=== PATIENT | female | born 1950 | race Caucasian/White ===

== ENCOUNTER 2016-04-21 18:34 | Inpatient (IN) | payer MEDICARE ==
[~2016-04-21] VITALS: Ht 152.4 cm; Wt 100.3 kg
[~2016-04-21 18:34] MED LIST: ALDACTONE25 MG PO; CAPOTEN 25MG TA25 MG PO; CITALOPRAM20 MG PO; KLOR-CON M2020 ME1 PO; LASIX80 MG PO; LOPID 600MG TA600 MG PO; METFORMIN ER500 M1 PO; MIRALAX17 GM/PACK PO; OMNICEF 300 MG300 MG PO; PREDNISONE5 MG PO; PREVACID 30MG C30 M1 PO; PROAIR HFA0.09 MG/AC IH; SALMETEROL-F28 PUFFS IN; TUSSIGON 1.5 MG1 TAB PO
[2016-04-21 18:36] VITALS: BP 134/79
[2016-04-21 19:04] LABS: LYMPH # 0.9 K/mm3 (0.7-4.5); LYMPH % 9.6 % (10-50.0)
[2016-04-21 19:13] LABS: HEMOGLOBIN 15.5 g/dL (12.2-16.2)
[2016-04-21 19:25] LABS: ALLEN'S TEST ACCEPTABLE; ARTERIAL ABE 1.1 MMOL/L (-2.4-+2.3); OXYGEN 6LPM
--- NOTE | 2016-04-21 19:45 | Emergency Room Report ---
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 N Clinical Suspician of Infection? N Mental Status: 1 - Regular (Normal Baseline) Sepsis Risk:Low Sepsis Risk Have you (or family members/close friends) recently traveled outside the [place]? N If Yes, where/when: Have you had exposure to infectious disease within the past month? N TB? Other? Specify: Source patient, RN notes reviewed, family, RN/MD Exam Limitations no limitations Comment This is a 66-year-old diabetic female patient presenting to the emergency room with shortness of breath, subjective fever, productive cough, onset on Thursday, gradually getting worse. Patient advised that her sister has been recently diagnosed with flu, but denies any recent travel. She is denying any chest pain, also did not have any previous cardiac work up. She "just does not feel well". Patient is denying any recent travel. ALLERGIES Coded Allergies: No Known Allergies (04/21/16) Home Medications Reported Medications Lansoprazole (Prevacid) 30 MG PO BID Polyethylene Glycol 3350 (Miralax) 17 GM PO DAILY Gemfibrozil (Lopid 600MG Tablet (Generic)) 600 MG PO BID Furosemide (Lasix) 80 MG PO DAILY Metformin HCl (Metformin ER) 500 MG PO BID CAPTOPRIL (Captopril) 25 MG PO BID Spironolactone (Aldactone) 25 MG PO BID CITALOPRAM HYDROBROMIDE (Citalopram HBr) 20 MG PO DAILY Potassium Chloride (Klor-Con M20) 20 MEQ PO DAILY Salmeterol 50/Fluticasone 250 (Advair 250-50 Diskus) 1 PUFF IN BID Albuterol Sulfate (Proair Hfa) 2 PUFFS IH QID Tiotropium [place] (Spiriva) 1 PUFF IH DAILY Sertraline Hcl (Sertraline 50MG) 50 MG PO DAILY #90 TAB Sulindac ([place] Generic 200MG Tab) 200 MG PO BID #180 TAB Risedronate Sodium 35 MG PO WEEKLY #12 TAB History Medical History General CAD? No Angina: No RI: No Hypertension? Yes Hyperlipidemia? No CHF? Yes DVT? No PE? No COPD? Yes Asthma? Yes Anemia? No GERD? No Gastric ulcers? No GI Bleed? No Hernia? No Thyroid Problems? No Hypothyroidism? No CVA? No Seizures? No Diabetes? Yes Insulin Dependent: No Insulin Pump: No Home FSBS? Yes Renal Insuffiency? No End Stage Renal Disease? No UTI? No Stones? No BPH? No GB Disease: No Nephritic Syndrome? No Asplenia? No Hepatitis? No Sickle Cell Disease? No Arthritis? No Migraines? No Cataracts? No Glaucoma? No MRSA? No HIV? No TB? No Anxiety? No Depression? No Cancer? No Immunization Hx DT/Tetanus > 10 YRS Flu THISFLUSEA Pneumonia Received In Past Surgical Hx Previous Surgery?Y Tubal Ligation APPY MULTILPLE BREAST BIOPSIES Family History Family Hx Diabetes No CAD Yes Hypertension Yes Hyperlipidemia Yes Cancer Yes TB No Social History Smoking Hx Smoker: Current Every Day Smoker Tobacco: Yes Type Cigarettes Packs/day < 1 Pack Alcohol Alcohol: No Review of Systems All Other Systems Reviewed and Negative Respiratory see HPI, cough, shortness of breath Physical Exam Vital Signs Vital Signs Date Time Temp Pulse Resp B/P Pulse O2 O2 Flow FiO2 Ox Delivery Rate 04/21 2052 6 04/21 2022 100 22 137/97 91 4 04/21 1952 95 22 107/57 91 4 04/21 1918 91 22 143/91 93 04/21 1900 12 04/21 190 12 04/21 1836 88 24 134/79 86 4 General Appearance normal appearance, WD/WN, moderate distress Neck normal inspection, non-tender, supple, full range of motion Respiratory Status Yes: trachea midline, chest symmetrical, non tender chest. No: respiratory distress. Lung Sounds anterior: wheezing. posterior: wheezing. bilateral: wheezing. left: wheezing. right: wheezing. 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 No Comment 18:45-case discussed with Dr. Lyon, advised of patient's presentation, blood gases, vital signs, radiology results. Dr. Lyon agreeable to accept patient as admission, with IV steroids, IV antibiotics, neb treatments, repeat ABGs. 19:30-case d/w Dr Arroyo, will see the patient in consultation, and okay with all the meds so far give, okay with management. 19:45-informed Dr Lyon of the elevated Troponin, and cardiology consultation Results/Orders Laboratory Tests 04/21/161923: ABG pH 7.25 L, ABG pCO2 (Temp Corrct 65.7 H, ABG pO2 (Temp Correct 76.0 L, ABG HCO3 28.0 H, ABG Total CO2 30.0 H, ABG O2 Sat (Calculated) 92, ABG Base Excess 1.1, Alexis Test ACCEPTABLE, Blood Gas Comments LEFT RADIAL 04/21/161849: B-Natriuretic Peptide 250 H 04/21/161849: Sodium 137, Potassium 3.9, Chloride 98, Carbon Dioxide 31, BUN 26 H, Creatinine 0.7, Estimated Creat Clear 140, Estimated GFR (MDRD) 84, Glucose 144 H, Calcium 8.8, Total Bilirubin 0.3, AST 19, ALT 23, Alkaline Phosphatase 110, Creatine Kinase 99, CK-MB (CK-2) Rel Index 3.3, CK and CKMB Interp 3.3, Troponin I 0.40 H, Total Protein 8.2, Albumin 3.1 L, Globulin 5.1 H, Albumin/Globulin Ratio 0.6 L, WBC 8.8, RBC 6.15 H, Hgb 15.5, Hct 47.9 H, MCV 77.9 L, RDW 15.7, Plt Count 135 L, MPV 7.3 L, Gran % 85.0 H, Gran # 7.5, Total Counted 100, Lymphocytes % 9.6 L, Monocytes % 4.7, Eosinophils % 0.4, Basophils % 0.4, Neutrophils 90 H, Lymphocytes (Manual) 6 L, Lymphocytes # 0.9, Monocytes ( Manual) 4, Monocytes # 0.4, Eosinophils # 0.0, Basophils # 0.0, Platelet Estimate NORMAL, Hypochromasia 1+, Anisocytosis 1+, PUBS MCHC 32.5, MCH 25.3 L Orders Procedure Date/time Status CARDIAC ENZYMES 04/22 0300 Complete ARTERIAL BLOOD GAS REQUEST 04/21 2200 Active CARDIAC ENZYMES 04/21 2099 Complete RT BIPAP, Initial Setup/Change 04/21 2052 Complete RT BIPAP, Monitor/Maintain 04/21 2052 Complete BRAIN NATRIURETIC PEPTIDE 04/21 2013 Complete RESP THERAPY REQUEST (GENERAL) 04/21 1957 Active Decision to admit 04/21 1947 Active RT Aerosol Treatment, Provide 04/21 1939 Complete RT REQUEST DUONEB 04/21 193 Active RT Aerosol Treatment, Provide 04/21 190 Complete RT REQUEST DUONEB 04/21 185 Active ARTERIAL BLOOD GAS REQUEST 04/21 185 Active IV SALINE LOCK 04/21 1850 Active CULTURE, BLOOD 04/21 1850 Active CBC WITH AUTO DIFF 04/21 185 Complete CARDIAC ENZYMES 04/21 185 Complete CHEM 12 PROFILE 04/21 1851 Complete DIFFERENTIAL-WBC 04/21 1850 Complete ADMIT PATIENT 04/21 UNK Active RESP THERAPY REQUEST (GENERAL) 04/21 UNK Active PULSE OXIMETRY REQUEST 04/21 UNK Active OXYGEN REQUEST 04/21 UNK Active RT REQUEST DUONEB 04/21 UNK Active VITAL SIGNS 04/21 UNK Active SECRETARY OF POLICE 04/21 UNK Active POM NURSE HELLEN HOSE ORDER 04/21 UNK Active CODE STATUS 04/21 UNK Active PATIENT ACTIVITY ORDER 04/21 UNK Active [facility] PHYS CONSULT 04/21 UNK Active 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 of ischemic chgs, no ectopy, normal QRS, normal [place], normal EKG, no EKG for comparison, non-spec. ST/Twave chgs, ST elevation, ST depression, LBBB, RBBB, ectopy, abnormal Q waves XRAY/CT/US XRAY/CT/US XRAY chest XR interpretation by discussed w/radiologist Xray Results no infiltrates, normal heart size, normal lung inflation mary Departure Departure Time of Disposition 1942 Disposition Still a Patient Clinical Impression Primary Impression: NSTEMI (non-ST elevated myocardial infarction) Secondary Impressions: Acute exacerbation of chronic bronchitis COPD exacerbation Respiratory failure with hypoxia and hypercapnia Qualifiers: Chronicity: acute Qualified Code: J96.01 - Acute respiratory failure with hypoxia Condition STABLE Referrals Camron MEADE,Shayne Canales (Family) Prescriptions Current Visit Scripts Cefdinir 300 MG PO BID #10 CAP Ref 1 Aspirin (Aspirin EC) 81 MG PO QHS #100 TAB Ref 6 ED Critical Care Critical Care Yes Time spent 30-74 min Vital system(s) involved: Circulatory Failure, Respiratory Failure I was present at bedside for Coordinating pt's care, Interpreting EKGs/Strips , During my initial exam, Reviewing lab results, Reviewing old records, Discussing pt condition, For re-examinations, Examining radiographs If Critical Care minutes are documented, the time involved in the performance of seperately reportable procedures was not counted toward critical care time documented. I directly delivered medical care to this critically ill and/or injured patient. Timely evaluation and treatment was necessary to address the significant organ system(s) dysfunction present in this patient. at [id number]
[2016-04-21 20:58] LABS: NEUTROPHILS 90 % (42-76)
[2016-04-21 21:25] VITALS: BP 158/76
--- NOTE | 2016-04-21 21:25 | HISTORY AND PHYSICAL REPORT ---
See Addendum History and Physical (FCA) Date of admission: 04/21/16 Chief complaint: SHORTNESS OF BREATH. HISTORY: This 66-year-old white female with chronic lung disease was admitted through the emergency room this evening. She states that she has had shortness of breath since Thursday and throughout the weekend. So now she is admitted Thursday evening. Possibly has had some low-grade fever. She has had chest tightness but no chest pain. As she was being worked up in the emergency room for her lung disease which is severe, it was found that she had an elevated troponin of 0.4. Dr. Arroyo exhaust emissions inspector has been notified of this. She has been medicated accordingly with Enoxaprin and Plavix. Despite her lung disease this patient continues to be a smoker. History: History of Present Illness: See above. Past Medical History: Medical History: CAD? No Angina: No CA: No Hypertension? Yes Hyperlipidemia? No CHF? No DVT? No PE? No COPD? Yes Asthma? Yes Anemia? No GERD? Yes Gastric ulcers? No GI Bleed? No Hernia? No Thyroid Problems? No Hypothyroidism? No CVA? No Seizures? No Diabetes? Yes Insulin Dependent: No Insulin Pump: No Home FSBS? Yes Renal Insuffiency? No UTI? No Stones? No BPH? No GB Disease: No Nephritic Syndrome? No Asplenia? No Hepatitis? No Sickle Cell Disease? No Arthritis? No Migraines? No Cataracts? No Glaucoma? No MRSA? No HIV? No TB? No Anxiety? No Depression? No Cancer? No Surgical history: Previous Surgery?Y 1. Bilateral Tubal Ligation 2. Appendectomy 3. MULTILPLE BREAST BIOPSIES Medications: Active Scripts Prednisone 5 MG PO DAILY 30 Days Ref 2 Prov: 06/04/11 Reported Medications Lansoprazole (Prevacid) 30 MG PO BID Polyethylene Glycol 3350 (Miralax) 17 GM PO DAILY Gemfibrozil (Lopid 600MG Tablet (Generic)) 600 MG PO BID Furosemide (Lasix) 80 MG PO DAILY Metformin HCl (Metformin ER) 500 MG PO BID CAPTOPRIL (Captopril) 25 MG PO BID Spironolactone (Aldactone) 25 MG PO BID CITALOPRAM HYDROBROMIDE (Citalopram HBr) 20 MG PO DAILY Potassium Chloride (Klor-Con M20) 20 MEQ PO DAILY Salmeterol 50/Fluticasone 250 (Advair 250-50 Diskus) 1 PUFF IN BID Albuterol Sulfate (Proair Hfa) 2 PUFFS IH QID Allergies: Coded Allergies: No Known Allergies (04/21/16) Family History: Family history: Postive for: CAD (Father), HTN, cancer (breast-mother). Social History: Smoking Hx Tobacco: Yes Smoker: Current Every Day Smoker Type: Cigarettes Packs/day: < 1 Pack (1 ppd) Are you exposed to second hand Yes Alcohol: Alcohol: No Hx of Drug Use: Drug Use? No Patien't marital status is: single Patient's support system is: fair Patient's occupation: Used to work at [employer] Review of Systems: Patient unresponsive? No (but on BiPap) Constitutional Positive for: weak. ENT No: ear ache, sore throat, throat swelling. Cardiovascular Positive for: FRIEDMAN. No: chest pain ("tightness"), edema, palpitations. Respiratory Positive for: dyspnea on exertion, shortness of air, wheezing. No: hemoptysis. GI No: GERD, abdominal pain, hematochezia, vomitting. (female) No: flank pain. Skin No: rash, swelling. Neurological Positive for: light headed, weakness. No: change in LOC, seizure, syncope. Eyes No: vision loss, eye pain, swelling. Musculoskeletal No: extremity pain. Heme No: bleeding. Psychiatric Positive for: anxious. No: depression, change in mental status. Physical Exam: Vital signs: 1ST Vital Signs Result Date Time Pulse Ox 86 04/21 1835 B/P 134/79 04/21 1835 O2 Flow Rate 4 04/21 1835 Pulse 88 04/21 1835 Resp 24 04/21 1835 Exam: General appearance: moderate distress, obese, agitated Eyes: anicteric, PERRLA ENT: mucous membranes moist Cardiovascular: regular rate & rhythm, distant heart sounds Respiratory: diminished breath sounds (BiPap) ABD: no organomegaly, obese Genitourinary: normal voiding & quantity Extremities: no peripheral edema Musculoskeletal: kyphosis present Skin: dry, intact, cyanosis Neuro: alert, no deficit, oriented, anxious due to dyspnea Lab data: Labs: Laboratory Tests 04/21/164: ABG pH 7.25 L, ABG pCO2 (Temp Corrct 65.7 H, ABG pO2 (Temp Correct 76.0 L, ABG HCO3 28.0 H, ABG Total CO2 30.0 H, ABG O2 Sat (Calculated) 92, ABG Base Excess 1.1, Alexis Test ACCEPTABLE, Blood Gas Comments LEFT RADIAL 04/21/161849: B-Natriuretic Peptide 250 H 04/21/161849: Sodium 137, Potassium 3.9, Chloride 98, Carbon Dioxide 31, BUN 26 H, Creatinine 0.7, Estimated Creat Clear 140, Estimated GFR (MDRD) 84, Glucose 144 H, Calcium 8.8, Total Bilirubin 0.3, AST 19, ALT 23, Alkaline Phosphatase 110, Creatine Kinase 99, CK-MB (CK-2) Rel Index 3.3, CK and CKMB Interp 3.3, Troponin I 0.40 H, Total Protein 8.2, Albumin 3.1 L, Globulin 5.1 H, Albumin/Globulin Ratio 0.6 L, WBC 8.8, RBC 6.15 H, Hgb 15.5, Hct 47.9 H, MCV 77.9 L, RDW 15.7, Plt Count 135 L, MPV 7.3 L, Gran % 85.0 H, Gran # 7.5, Total Counted 100, Lymphocytes % 9.6 L, Monocytes % 4.7, Eosinophils % 0.4, Basophils % 0.4, Neutrophils 90 H, Lymphocytes (Manual) 6 L, Lymphocytes # 0.9, Monocytes ( Manual) 4, Monocytes # 0.4, Eosinophils # 0.0, Basophils # 0.0, Platelet Estimate NORMAL, Hypochromasia 1+, Anisocytosis 1+, PUBS MCHC 32.5, MCH 25.3 L Microbiology 04/21 1849 BLOOD: Anaerobic Blood Culture - RECD 04/21 1849 BLOOD: Aerobic Blood Culture - RECD 04/21 1849 BLOOD: Anaerobic Blood Culture - RECD 04/21 1849 BLOOD: Aerobic Blood Culture - RECD Diagnosis(es): 1. Acute exacerbation of chronic obstructive airways disease Status: Acute 2. Asthma Status: Chronic 3. Hypoxia Status: Acute 4. Respiratory failure with hypoxia and hypercapnia 5. NSTEMI (non-ST elevated myocardial infarction) Plan: See orders. Has received IV SoluMedrol. Enoxaprin. Plavix. IV antibiotics. Dr. Arroyo aware of patient and her status. at [id number]
[2016-04-21 22:52] VITALS: BP 158/76
[2016-04-21 23:06] LABS: ALLEN'S TEST ACCEPTABLE; ARTERIAL ABE -0.5 MMOL/L (-2.4-+2.3); OXYGEN BIPAP 5LPM
[2016-04-22] VITALS (20 sets, daily range): BP systolic 131–192; BP diastolic 55–90
[2016-04-22 06:14] LABS: ALLEN'S TEST ACCEPTABLE; ARTERIAL ABE 4.3 MMOL/L (-2.4-+2.3); ARTERIAL PO2 53.9 MMHG (80-100); ARTERIAL TCO2 31.8 MMOL/L (23-27); OXYGEN 32% BIPAP
--- NOTE | 2016-04-22 07:21 | PHARMACY CLINIC NOTE ---
Patient Demographics Patient Demographics Admission date: 04/21/16 Date: 04/22/16 Time: 0721 Allergies Coded Allergies: No Known Allergies (04/21/16) HEIGHT- FT: 5 IN: 0.00 K.143 VTE General Information Labs: Laboratory Tests 04/21 1850 Hematology Hgb (12.2 - 16.2 g/dL) 15.5 Hct (37.0 - 47.0 %) 47.9 H Plt Count (142 - 424 K/mm3) 135 L Disclaimer The following section includes nursing documentation that has been pulled in for pharmacy review. Patient's VTE score: 6 Patient's VTE Risk: MOD RISK Clinical trial participant? No VTE prophylaxis [facility] 0371 VTE prophylaxis ordered? Yes Type of prophylaxis/treatment: HELLEN Sheldon at 0721
--- NOTE | 2016-04-22 07:21 | PHARMACY CLINIC NOTE ---
Patient Demographics Patient Demographics Admission date: 04/21/16 Date: 04/22/16 Time: 0721 Allergies Coded Allergies: No Known Allergies (04/21/16) HEIGHT- FT: 5 IN: 0.00 K.143 VTE General Information Labs: Laboratory Tests 04/21 1850 Hematology Hgb (12.2 - 16.2 g/dL) 15.5 Hct (37.0 - 47.0 %) 47.9 H Plt Count (142 - 424 K/mm3) 135 L Disclaimer The following section includes nursing documentation that has been pulled in for pharmacy review. Patient's VTE score: 6 Patient's VTE Risk: MOD RISK Clinical trial participant? No VTE prophylaxis [facility] 0371 VTE prophylaxis ordered? Yes Type of prophylaxis/treatment: HELLEN Sheldon at 0721
--- NOTE | 2016-04-22 07:56 | RADIOLOGY REPORT PS360 ---
CHEST-PORTABLE HISTORY: SOA ORDERING PHYSICIAN: Dakota Jacome MD PATIENT AGE: 66 years COMPARISON: None available FINDINGS: Cardiomegaly without failure. Chronic coarsening of bronchovascular markings as before.. Study is underpenetrated. Increased markings are present in the right lower lobe and may be due to superimposed atelectasis or infiltrate.. No acute bony anomalies. IMPRESSION: Chronic changes with atelectasis or infiltrate in the right mid to lower lung zone. Recommend upright PA and lateral chest for further evaluation
--- NOTE | 2016-04-22 08:00 | ACUTE CARE PROGRESS NOTE (QUA) ---
See Addendum Progress Notes Subjective Date 04/22/16 Time 0755 Note Pt feeling better this am. She states her CP and stomach pain have resolved. She has been on BIPAP and does c/o a dry mouth. She slept off and on last night. Her SOA has improved. Objective Findings Last VS-Temp:98.2 B/P:166/83 Pulse:72 Resp:85 SaO2:91 OXYGEN Last weight lbs:225 oz:3 K.143 Method:Bed Scales Laboratory Tests 04/22/16 0555: ABG pH 7.34 L, ABG pCO2 (Temp Corrct 56.9 H, ABG pO2 (Temp Correct 53.9 L, ABG HCO3 30.1 H, ABG Total CO2 31.8 H, ABG O2 Sat (Calculated) 85.8 *L, ABG Base Excess 4.3 H, Alexis Test ACCEPTABLE, Blood Gas Comments RIGHT RADIAL 04/22/16 0310: Creatine Kinase 79, CK-MB (CK-2) Rel Index 4.7 H, CK and CKMB Interp 3.7 H, Troponin I 0.34 H 04/21/16 2305: ABG pH 7.28 L, ABG pCO2 (Temp Corrct 57.0 H, ABG pO2 (Temp Correct 80.0, ABG HCO3 26.0, ABG Total CO2 28.0 H, ABG O2 Sat (Calculated) 94, ABG Base Excess - 0.5, Alexis Test ACCEPTABLE, Blood Gas Comments RIGHT RADIAL 04/21/162103: POC Glucose 137 H 04/21/162100: Creatine Kinase 84, CK-MB (CK-2) Rel Index 3.9, CK and CKMB Interp 3.3, Troponin I 0.50 H 04/21/16 1924: ABG pH 7.25 L, ABG pCO2 (Temp Corrct 65.7 H, ABG pO2 (Temp Correct 76.0 L, ABG HCO3 28.0 H, ABG Total CO2 30.0 H, ABG O2 Sat (Calculated) 92, ABG Base Excess 1.1, Alexis Test ACCEPTABLE, Blood Gas Comments LEFT RADIAL 04/21/16 1850: B-Natriuretic Peptide 250 H 04/21/16 1850: Sodium 137, Potassium 3.9, Chloride 98, Carbon Dioxide 31, BUN 26 H, Creatinine 0.7, Estimated Creat Clear 140, Estimated GFR (MDRD) 84, Glucose 144 H, Calcium 8.8, Total Bilirubin 0.3, AST 19, ALT 23, Alkaline Phosphatase 110, Creatine Kinase 99, CK-MB (CK-2) Rel Index 3.3, CK and CKMB Interp 3.3, Troponin I 0.40 H, Total Protein 8.2, Albumin 3.1 L, Globulin 5.1 H, Albumin/Globulin Ratio 0.6 L, WBC 8.8, RBC 6.15 H, Hgb 15.5, Hct 47.9 H, MCV 77.9 L, RDW 15.7, Plt Count 135 L, MPV 7.3 L, Gran % 85.0 H, Gran # 7.5, Total Counted 100, Lymphocytes % 9.6 L, Monocytes % 4.7, Eosinophils % 0.4, Basophils % 0.4, Neutrophils 90 H, Lymphocytes (Manual) 6 L, Lymphocytes # 0.9, Monocytes ( Manual) 4, Monocytes # 0.4, Eosinophils # 0.0, Basophils # 0.0, Platelet Estimate NORMAL, Hypochromasia 1+, Anisocytosis 1+, PUBS MCHC 32.5, MCH 25.3 L Microbiology 04/21 1849 BLOOD: Anaerobic Blood Culture - RECD 04/21 1849 BLOOD: Aerobic Blood Culture - RECD 04/21 1849 BLOOD: Anaerobic Blood Culture - RECD 04/21 1849 BLOOD: Aerobic Blood Culture - RECD CXR - IMPRESSION: Chronic changes with atelectasis or infiltrate in the right mid to lower lung zone. Recommend upright PA and lateral chest for further evaluation Exam General appearance: alert, awake, no acute distress Cardiovascular: regular rate & rhythm Respiratory: diminished breath sounds ((BIPAP)) ABD: non-distended, normal bowel sounds, no rebound, soft, no tenderness, no guarding Extremities: no peripheral edema Assessment/Plan Problem List 1. Acute exacerbation of chronic obstructive airways disease Status: Acute 2. Asthma Status: Chronic 3. Hypoxia Status: Acute 4. Respiratory failure with hypoxia and hypercapnia 5. NSTEMI (non-ST elevated myocardial infarction) Plan: CO2 was still elevated early this am. Pt would like BIPAP removed but with elevated CO2 will need to discuss with Dr. Lyon. Cardiology has been consulted for her elevated troponin levels. This inpt stay is expected to cross 2 MNs from start of care Yes at 0800 at 0846
--- NOTE | 2016-04-22 10:03 | CONSULT NOTE ---
Standard Demographics Patient Demo Date of Consultation: 04/22/16 Referring Provider: Alpesh Lyon MD Reason for Consultation: Elevated troponins PRIMARY DIAGNOSIS: COPD EXACERBATON, ACUTE RESPIRATORY FAILURE NSTEMI Problem list Problem list: 1. Tobacco use, continued A. Chronic obstructive pulmonary disease 2. Obstructive sleep apnea for which CPAP and is used at night 3. Remote history of congestive heart failure per patient 4. Hypertension 5. Unknown cholesterol status History of present illness: History of present illness: 66-year-old white female with recent increase in cough and congestion with shortness of breath with some upper abdominal lower chest discomfort was admitted to the hospital for exacerbation of chronic obstructive pulmonary disease. Patient has been on BiPAP continuously due to elevated CO2 and low oxygen saturations. During her stay of lab work is included troponins which have returned elevated. Cardiology consulted for further evaluation. Patient denies any history of cardiac cath or stress testing. Electrocardiogram is sinus with isolated Q-wave in lead 3. Past Medical History: General: Hypertension Yes CVA No Seizures No TB No COPD Yes Asthma Yes Diabetes Yes Insulin Dependent No Insulin Pump No Angina No VT No Hyperlipidemia No Cancer No Ulcers No MRSA No GB Disease No Past Surgical HX: Previous Surgery?Y Tubal Ligation APPY MULTILPLE BREAST BIOPSIES Allergies Coded Allergies: No Known Allergies (04/21/16) Home medications: Reported Medications Lansoprazole (Prevacid) 30 MG PO BID Polyethylene Glycol 3350 (Miralax) 17 GM PO DAILY Gemfibrozil (Lopid 600MG Tablet (Generic)) 600 MG PO BID Furosemide (Lasix) 80 MG PO DAILY Metformin HCl (Metformin ER) 500 MG PO BID CAPTOPRIL (Captopril) 25 MG PO BID Spironolactone (Aldactone) 25 MG PO BID CITALOPRAM HYDROBROMIDE (Citalopram HBr) 20 MG PO DAILY Potassium Chloride (Klor-Con M20) 20 MEQ PO DAILY Salmeterol 50/Fluticasone 250 (Advair 250-50 Diskus) 1 PUFF IN BID Albuterol Sulfate (Proair Hfa) 2 PUFFS IH QID Tiotropium Oxford (Spiriva) 1 PUFF IH DAILY Sertraline Hcl (Sertraline 50MG) 50 MG PO DAILY #90 TAB Sulindac (Clinoril Generic 200MG Tab) 200 MG PO BID #180 TAB Risedronate Sodium 35 MG PO WEEKLY #12 TAB Current Medications: Current Medications Ceftriaxone Sodium 1 GM Q24H IV Sodium Chloride 50 ML Acetaminophen 0 .STK-MED ONE PO (DC) Clopidogrel Bisulfate 75 MG DAILY PO Sodium Chloride 10 ML PRN PRN IV Albuterol/Ipratropium 3 ML Q4H6 INH Diagnostic Test (Pha) 1 EACH W/MEALS&HS FS Enoxaparin Sodium 100 MG BID SC Insulin Human [rDNA origin] SEE ADMIN CRITERIA FOR LOW INTENSITY SS W/MEALS&HS SC Methylprednisolone Sodium Succinate 60 MG Q12 IV Methylprednisolone Sodium Succinate 60 MG Q12 IV Ceftriaxone Sodium 1 GM Q24H IV (DC) Sodium Chloride 50 ML Aspirin 324 MG ONCE ONE PO (DC) Clopidogrel Bisulfate 300 MG ONCE ONE PO (DC) Clopidogrel Bisulfate 0 .STK-MED ONE PO (DC) Enoxaparin Sodium 100 MG ONCE ONE SC (DC) Enoxaparin Sodium 0 .STK-MED ONE SC (DC) Aspirin 0 .STK-MED ONE .ROUTE (DC) Ceftriaxone Sodium 0 .STK-MED ONE IV (DC) Sodium Chloride 50 ML .STK-MED ONE IV (DC) Albuterol/Ipratropium 3 ML ONCE ONE INH (DC) Ceftriaxone Sodium 1 GM ONCE ONE IV (DC) Sodium Chloride 50 ML Albuterol/Ipratropium 0 .STK-MED ONE INH (DC) Albuterol/Ipratropium 3 ML ONCE ONE INH (DC) Albuterol/Ipratropium 0 .STK-MED ONE INH (DC) Methylprednisolone Sodium Succinate 125 MG ONCE ONE IV (DC) Sodium Chloride 10 ML PRN PRN IV Methylprednisolone Sodium Succinate 0 .STK-MED ONE .ROUTE (DC) Immunization HX DT/Tetanus > 10 YRS Flu [id number] FLU SEASON Pneumonia RECEIVED IN PAST TB Test in last year No Family history Family HX Family Hx Insignificant No Diabetes No CAD Yes Hypertension Yes Hyperlipidemia Yes Cancer Yes TB No Social Hx: Smoking HX Tobacco Yes Type Cigarettes Packs/day < 1 PACK (1 ppd) Are you/the child exposed to second-hand smoke: Yes Alcohol Alcohol: No Hx of Drug Use Drug Use? No Review of systems: Constitutional see HPI. Respiratory see HPI, cough, shortness of breath, SOB with excertion, SOB at rest. Cardiovascular see HPI, chest pain Gastrointestinal/Abdominal No no symptoms reported Genitourinary No: no symptoms reported. Musculoskeletal back pain, joint pain, muscle pain. Neurological No: no symptoms reported. Exam: Admission Vital Signs: 1ST Vital Signs Result Date Time Pulse Ox 86 04/216 B/P 134/79 04/21 1836 O2 Flow Rate 4 04/21 1835 Pulse 88 04/21 183 Resp 24 04/21 1835 O2 Delivery OXYGEN 04/21 2124 Temp 98.2 04/21 2124 Last Vital Signs: Vital Signs Result Date Time Pulse Ox 98 04/22 0839 B/P 131/73 04/22 0739 O2 Delivery OXYGEN 04/22 838 Temp 97.5 04/22 08 Pulse 76 04/22 0839 Resp 17 04/22 0839 O2 Flow Rate 4 04/22 0744 Exam General appearance: alert, awake, no acute distress, BiPAP machine in place. Neck: no carotid bruit, unable to appreciate JVD due to body habitus. Cardiovascular: regular rate & rhythm, distant heart sounds due to body habitus. Respiratory: clear to auscultation, diminished breath sounds ABD: soft, no tenderness Extremities: moves all, no peripheral edema Neuro: alert, intact, oriented, speech clear Laboratory data: Laboratory Tests 04/22/16 0555: ABG pH 7.34 L, ABG pCO2 (Temp Corrct 56.9 H, ABG pO2 (Temp Correct 53.9 L, ABG HCO3 30.1 H, ABG Total CO2 31.8 H, ABG O2 Sat (Calculated) 85.8 *L, ABG Base Excess 4.3 H, Alexis Test ACCEPTABLE, Blood Gas Comments RIGHT RADIAL 04/22/16 0310: Creatine Kinase 79, CK-MB (CK-2) Rel Index 4.7 H, CK and CKMB Interp 3.7 H, Troponin I 0.34 H 04/21/16 2305: ABG pH 7.28 L, ABG pCO2 (Temp Corrct 57.0 H, ABG pO2 (Temp Correct 80.0, ABG HCO3 26.0, ABG Total CO2 28.0 H, ABG O2 Sat (Calculated) 94, ABG Base Excess - 0.5, Alexis Test ACCEPTABLE, Blood Gas Comments RIGHT RADIAL 04/21/164: POC Glucose 137 H 04/21/162100: Creatine Kinase 84, CK-MB (CK-2) Rel Index 3.9, CK and CKMB Interp 3.3, Troponin I 0.50 H 04/21/161923: ABG pH 7.25 L, ABG pCO2 (Temp Corrct 65.7 H, ABG pO2 (Temp Correct 76.0 L, ABG HCO3 28.0 H, ABG Total CO2 30.0 H, ABG O2 Sat (Calculated) 92, ABG Base Excess 1.1, Alexis Test ACCEPTABLE, Blood Gas Comments LEFT RADIAL 04/21/161849: B-Natriuretic Peptide 250 H 04/21/161849: Sodium 137, Potassium 3.9, Chloride 98, Carbon Dioxide 31, BUN 26 H, Creatinine 0.7, Estimated Creat Clear 140, Estimated GFR (MDRD) 84, Glucose 144 H, Calcium 8.8, Total Bilirubin 0.3, AST 19, ALT 23, Alkaline Phosphatase 110, Creatine Kinase 99, CK-MB (CK-2) Rel Index 3.3, CK and CKMB Interp 3.3, Troponin I 0.40 H, Total Protein 8.2, Albumin 3.1 L, Globulin 5.1 H, Albumin/Globulin Ratio 0.6 L, WBC 8.8, RBC 6.15 H, Hgb 15.5, Hct 47.9 H, MCV 77.9 L, RDW 15.7, Plt Count 135 L, MPV 7.3 L, Gran % 85.0 H, Gran # 7.5, Total Counted 100, Lymphocytes % 9.6 L, Monocytes % 4.7, Eosinophils % 0.4, Basophils % 0.4, Neutrophils 90 H, Lymphocytes (Manual) 6 L, Lymphocytes # 0.9, Monocytes ( Manual) 4, Monocytes # 0.4, Eosinophils # 0.0, Basophils # 0.0, Platelet Estimate NORMAL, Hypochromasia 1+, Anisocytosis 1+, PUBS MCHC 32.5, MCH 25.3 L Microbiology Date/Time Procedure - Status Source Growth 04/21 1849 Anaerobic Blood Culture - RECD BLOOD 04/21 1849 Aerobic Blood Culture - RECD BLOOD 04/21 1849 Anaerobic Blood Culture - RECD BLOOD 04/21 1849 Aerobic Blood Culture - RECD BLOOD Plan: Assessment: 1. Elevated troponins in a patient with multiple risk factors including tobacco use, diabetes, hypertension, family history and unknown cholesterol status with chronic prednisone use for chronic obstructive pulmonary disease. Patient currently is without chest pain or abdominal pain. Her breathing subjectively has improved. Due to patient being on BiPAP and asymptomatic at this time, we'll obtain an echocardiogram to evaluate for LEFT ventricular ejection fraction and any wall motion abnormalities. Once patient is able to come off of the BiPAP would like to proceed with cardiac catheterization. Patient has been started on aspirin, Plavix and Lovenox therapy. In light of acute pulmonary distress would not start beta daniela therapy at this time. 2. Chronic obstructive pulmonary disease with acute exacerbation requiring BiPAP therapy. 3. Diabetes mellitus 4. Hypertension 5. Unknown cholesterol status, will obtain fasting lipids. Recommendations: Discussed with Dr. Arroyo. See above. at 1224
[2016-04-22] MEDS ORDERED: SERTRALINE 50MG50 MG PO (14:48)
[2016-04-22] MEDS ORDERED: CLINORIL GENER200 MG PO (14:48)
[2016-04-22] MEDS ORDERED: RISEDRONATE SOD35 MG PO (14:49)
[2016-04-22] MEDS ORDERED: SPIRIVA HA1 PUFF/INH IH (15:30)
--- NOTE | 2016-04-22 16:49 | RADIOLOGY REPORT PS360 ---
PROCEDURE: 2-D M-mode and color Doppler study INDICATIONS FOR THE TEST: Chest pain COPDX Heart Murmur Tobacco SmokingX Palpitations Fatigue Syncope Edema Hypertension Diabetes Mellitus Rheumatic Fever SOBXDOE ObesityXHyperlipidemia Family History HD Additional History ELEVATED TROPONIN LIMITED EXAM SECONDARY COPD PATIENT INFORMATION HEIGHT: 60 WEIGHT:225 GENDER: Female B/P:134/79 2-D/M-MODE INTERPRETATION: 2-D MEASUREMENTS OBSERVED VALUES IN CMS Right Ventricular Dimension (RVDd) 3.4 Interventricular Septum (Thickness)(IVsd) 1.0 Left Ventricular Internal Dimensions(LVIDd) 5.7 Left Ventricular Posterior Wall (Thickness)(LVPWd) 1.1 Aortic Root 3.3 Aortic Cusp Separation 1.9 Left Atrial Dimensions (LAD) 2.6 2D 1. Technically difficult study because of the patient's factor and poor acoustic Windows. 2. The left atrium is normal size, the left ventricle is normal size, there is probably preserved left ventricular systolic function, visually estimated ejection fraction approximately 50%, endocardial surface of very poorly visualized, a repeat study with definitely contrast is recommended. 3. The right atrium is normal size, the right ventricle is mildly enlarged with mild reduced contractility. 4. The aortic valve is minimally thickened and fibrosed, sclerosis. 5. The mitral valve leaflets are minimally thickened there is no mitral stenosis. 6. The tricuspid and pulmonic valve are not well visualized. 7. No significant pericardial effusion noted. DOPPLER INTERROGATION: Doppler interrogation of the aortic mitral and tricuspid presence of mild mitral and tricuspid regurgitation, tricuspid regurgitant jet velocity insufficient for calculation of the right ventricular systolic pressure. CONCLUSION: 1. Technically very difficult study because of the patient's factor and poor acoustic windows, repeat study with definitely contrast is recommended. 2. Probably preserved left ventricular systolic function, endocardial surface of very poorly visualized. 3. Mildly enlarged right ventricle with mild reduced contractility. 4. Mild mitral and tricuspid regurgitation. 5. No significant pericardial effusion noted.
[2016-04-23] VITALS (22 sets, daily range): BP systolic 114–165; BP diastolic 50–99
--- NOTE | 2016-04-23 08:29 | ACUTE CARE PROGRESS NOTE (QUA) ---
Progress Notes Subjective Date 04/23/16 Time 0825 Note Pt slept with BIPAP and is on a ventimask today. She states she is still SOA. Less coughing. She cannot remember if she slept well last night. She was not able to eat much of her breakfast. Cardiology has seen patient and is planning a cath tomorrow pending her respiratory status. Objective Findings Last VS-Temp:97.4 B/P:153/82 Pulse:70 Resp:22 SaO2:98 OXYGEN Last weight lbs:222 oz:0 K.698 Method:Bed Scales Laboratory Tests 04/23/16 0642: POC Glucose 133 H 04/22/16 2125: POC Glucose 142 H 04/22/16 1702: POC Glucose 142 H 04/22/16 1202: POC Glucose 125 H 04/22/16 0955: Triglycerides 227 H, Cholesterol 190, LDL Cholesterol 103.6, VLDL Cholesterol 45.4 H, HDL Cholesterol 41.0 04/22/16 0955: Sodium 138, Potassium 4.0, Chloride 99, Carbon Dioxide 33 H, BUN 32 H, Creatinine 0.7, Estimated Creat Clear 131, Estimated GFR (MDRD) 84, Glucose 118 H, Calcium 8.7 Exam General appearance: alert, awake, no acute distress Cardiovascular: regular rate & rhythm Respiratory: diminished breath sounds ABD: non-distended, normal bowel sounds, no rebound, soft, no tenderness, no guarding Extremities: no peripheral edema Assessment/Plan Problem List 1. Acute exacerbation of chronic obstructive airways disease Status: Acute 2. Asthma Status: Chronic 3. Hypoxia Status: Acute 4. Respiratory failure with hypoxia and hypercapnia 5. NSTEMI (non-ST elevated myocardial infarction) Plan: Will recheck labs tomorrow and continue current treatment. Cardiology to follow. This inpt stay is expected to cross 2 MNs from start of care Yes at 0828
--- NOTE | 2016-04-23 08:58 | ACUTE CARE PROGRESS NOTE (QUA) ---
Progress Notes Subjective Date 04/23/16 Time 0800 Note 66 yo WF in bed on ventimask. Breathing is improving but still limiting. No chest pain. Objective Findings Last VS-Temp:97.4 B/P:153/82 Pulse:70 Resp:22 SaO2:98 OXYGEN Last weight lbs:222 oz:0 K.698 Method:Bed Scales Exam General appearance: alert, awake, obese Cardiovascular: regular rate & rhythm Respiratory: improved but still diminished breath sounds. No wheezing. Extremities: moves all, no peripheral edema Neuro: alert, oriented, speech clear Reviewed: medications, vital signs, lab results Assessment/Plan Problem List 1. Acute exacerbation of chronic obstructive airways disease Status: Acute 2. Asthma Status: Chronic 3. Hypoxia Status: Acute 4. Respiratory failure with hypoxia and hypercapnia Qualifiers: Chronicity: acute Qualified Code: J96.01 - Acute respiratory failure with hypoxia 5. NSTEMI (non-ST elevated myocardial infarction) Assessment/Plan: Echo was technically difficult study due to body habitus and COPD but seems to have preserved LVEF. If respiratory status continues to improve and patient able to use oxygen by ventimask or nasal cannula, then could consider proceeding with cardiac cath in AM. Will add ARB for BP in setting of elevated Troponins/NSTEMI. 6. Tobacco use Patient condition Guarded Plan: As above. This inpt stay is expected to cross 2 MNs from start of care Yes at 2130
[2016-04-23 09:12] LABS: ARTERIAL ABE 11.5 MMOL/L (-2.4-+2.3); ARTERIAL TCO2 40.4 MMOL/L (23-27)
[2016-04-23 09:13] LABS: ALLEN'S TEST ACCEPTABLE; OXYGEN 40%
[2016-04-24] VITALS (22 sets, daily range): BP systolic 116–164; BP diastolic 42–75
[2016-04-24 06:14] LABS: LYMPH # 0.8 K/mm3 (0.7-4.5); LYMPH % 15.8 % (10-50.0)
[2016-04-24 06:50] LABS: HEMOGLOBIN 13.8 g/dL (12.2-16.2)
--- NOTE | 2016-04-24 08:42 | ACUTE CARE PROGRESS NOTE (QUA) ---
See Addendum Progress Notes Subjective Date 04/24/16 Time 0839 Note Pt has been restless since being moved to [facility] for step down care. She states she just can't get comfortable and she is hot. She is still SOA and wheezing. She has has a ventimask in place. She denies any pain. Objective Findings Last VS-Temp:97.9 B/P:147/70 Pulse:67 Resp:24 SaO2:100 OXYGEN Last weight lbs:221 oz:6 K.414 Method:Bed Scales Laboratory Tests 04/24/16 0747: POC Glucose 104 04/24/16 0550: Sodium 140, Potassium 4.9, Chloride 101, Carbon Dioxide 42 *H, BUN 36 H, Creatinine 0.6, Estimated Creat Clear 150, Estimated GFR (MDRD) 101, Glucose 120 H, Calcium 8.9, WBC 4.8, RBC 5.80 H, Hgb 13.8, Hct 46.7, MCV 81.2 L, RDW 15.2 , Plt Count 145, MPV 6.0 L, Gran % 77.1, Gran # 3.9, Lymphocytes % 15.8, Monocytes % 6.4, Eosinophils % 0.1, Basophils % 0.6, Lymphocytes # 0.8, Monocytes # 0.3, Eosinophils # 0.0, Basophils # 0.0, PUBS MCHC 29.4 L, MCH 23.9 L 04/23/16 2006: POC Glucose 133 H 04/23/16 1150: POC Glucose 116 H 04/23/16 0912: ABG pH 7.30 L, ABG pCO2 (Temp Corrct 79.6 H, ABG pO2 (Temp Correct 65.0 L, ABG HCO3 37.9 H, ABG Total CO2 40.4 H, ABG O2 Sat (Calculated) 91.1, ABG Base Excess 11.5 H, Alexis Test ACCEPTABLE, Blood Gas Comments R RADIAL 04/23/16 0908: Sodium 138, Potassium 4.5, Chloride 100, Carbon Dioxide 37 H, BUN 35 H, Creatinine 0.6, Estimated Creat Clear 151, Estimated GFR (MDRD) 101, Glucose 134 H, Calcium 8.5 Exam General appearance: alert, awake, no acute distress Cardiovascular: regular rate & rhythm Respiratory: expiratory wheezes and diminished breath sounds ABD: non-distended, normal bowel sounds, no rebound, soft, no tenderness, no guarding Extremities: no peripheral edema Assessment/Plan Problem List 1. Acute exacerbation of chronic obstructive airways disease Status: Acute 2. Asthma Status: Chronic 3. Hypoxia Status: Acute 4. Respiratory failure with hypoxia and hypercapnia 5. NSTEMI (non-ST elevated myocardial infarction) 6. Tobacco use Plan: Pt is supposed to be having a heart cath today. Awaiting cardiology note. This inpt stay is expected to cross 2 MNs from start of care Yes at 0842 at 1041
--- NOTE | 2016-04-24 14:01 | RADIOLOGY REPORT PS360 ---
CARDIAC CATHETERIZATION DATE OF CATHETERIZATION:04/24/2016 11:24 AM PROCEDURES: 1. Left heart catheterization 2. Left ventriculogram 3. Selective coronary angiogram INDICATION FOR TEST: 1. Acute non-ST elevation myocardial infarction 2. Non-ST elevation myocardial infarction Informed consent was obtained prior to the procedure. COMPLICATIONS: None ESTIMATED BLOOD LOSS: Less than 10 ml. TECHNIQUE: One percent lidocaine was used to anesthetize the right groin. The right femoral artery was accessed via the Seldinger technique. A 4-Bermudian sheath was placed in the right femoral artery. The JL-4 and JR-4 catheter was also used to perform left heart catheterization and left ventriculography. At the end of the procedure the patient was transferred to the post-op holding area in stable condition for arterial sheath removal. ANGIOGRAPHIC RESULTS: 1. The left main artery normal 2. The left anterior descending artery mild luminal irregularities 3. The circumflex artery mild luminal irregularities 4. The right coronary artery dominant has a mid vessel 30-40% nonflow limiting stenosis 5. The BRENNAN ventriculogram reveals normal 65% 6. The left ventricular end-diastolic pressure mildly elevated 20 mmHg IMPRESSION: 1. Mild to moderate nonflow limiting disease in the proximal to mid dominant right coronary 2. Normal ejection fraction 3. Mildly elevated LVEDP consistent with diastolic dysfunction PLAN: 1. Medical management 2. Diuretics 3. Patient needs to have daily weights and adjust Lasix according to wait fluctuations
[2016-04-25] VITALS (11 sets, daily range): BP systolic 117–162; BP diastolic 59–99
--- NOTE | 2016-04-25 07:55 | ACUTE CARE PROGRESS NOTE (QUA) ---
Progress Notes Subjective Date 04/25/16 Time 0750 Note 66 yo WF in NAD. On BiPAP without complaint of chest pain. Objective Findings Last VS-Temp:98.2 B/P:134/65 Pulse:67 Resp:25 SaO2:100 OXYGEN Last weight lbs:221 oz:3 K.329 Method:Bed Scales Exam General appearance: alert, awake Cardiovascular: regular rate & rhythm Respiratory: diminished breath sounds Extremities: moves all, no peripheral edema Neuro: alert, intact, oriented Reviewed: medications, vital signs, lab results Assessment/Plan Problem List 1. Acute exacerbation of chronic obstructive airways disease Status: Acute 2. Asthma Status: Chronic 3. Hypoxia Status: Acute 4. Respiratory failure with hypoxia and hypercapnia Qualifiers: Chronicity: acute Qualified Code: J96.01 - Acute respiratory failure with hypoxia 5. NSTEMI (non-ST elevated myocardial infarction) Assessment/Plan: Non-flow limiting CAD on cath. Elevated troponins due to demand ischemia from COPD exacerbation. Ok to move to floor. No further cardiac workup. 6. Tobacco use Patient condition Stable Plan: continue current care This inpt stay is expected to cross 2 MNs from start of care Yes at 0755
--- NOTE | 2016-04-25 08:40 | ACUTE CARE PROGRESS NOTE (QUA) ---
Progress Notes Subjective Date 04/25/16 Time 0834 Note Seems much better today. BiPap during the night. On 3 liters since b-fast. Seems comfortable. Noncritical CAD on cath. Patient/family reports: feeling better Objective Findings Last VS-Temp:97.8 B/P:140/69 Pulse:69 Resp:16 SaO2:91 OXYGEN Last weight lbs:221 oz:3 K.329 Method:Bed Scales Exam General appearance: alert, no acute distress Eyes: anicteric, PERRLA ENT: dry mucous membranes Cardiovascular: regular rate & rhythm, no peripheral edema Respiratory: good air movement, no respiratory distress, diminished breath sounds ABD: soft, obese Extremities: no peripheral edema Musculoskeletal: motor intact Skin: dry, intact Neuro: alert, oriented, speech clear Reviewed: medications, vital signs, lab results Assessment/Plan Problem List 1. Acute exacerbation of chronic obstructive airways disease Status: Acute 2. Asthma Status: Chronic 3. Hypoxia Status: Acute 4. Respiratory failure with hypoxia and hypercapnia 5. NSTEMI (non-ST elevated myocardial infarction) 6. Tobacco use Patient condition Improving Plan: Check ABG. Transfer to med floor with telemetry. This inpt stay is expected to cross 2 MNs from start of care Yes at 0839
[2016-04-25 08:53] LABS: ALLEN'S TEST ACCEPTABLE; ARTERIAL ABE 17.2 MMOL/L (-2.4-+2.3); OXYGEN 32
[2016-04-26 04:30] VITALS: BP 116/549
[2016-04-26 08:27] VITALS: BP 112/55
[2016-04-26 08:34] VITALS: BP 112/55
--- NOTE | 2016-04-26 10:38 | ACUTE CARE PROGRESS NOTE (QUA) ---
Progress Notes Subjective Date 04/26/16 Time 1032 Note She states that she feels well and is anxious to go home. She is sleeping with BiPAP which she says she also does at home. She has oxygen at home. She does not have a nebulizer. I reviewed her admission chest x-ray which did not show pneumonia, thus, this represented an exacerbation of her chronic lung disease with respiratory failure. A blood gas was obtained yesterday but it appears that it was a mixed venous specimen. The sat was very low (78%) but pH was normal. Patient/family reports: feeling better Objective Findings Laboratory Tests 04/26/16 0635: POC Glucose 100 04/25/16 2000: POC Glucose 97 04/25/16 1702: POC Glucose 104 04/25/16 1128: POC Glucose 105 Last VS-Temp:98.1 B/P:112/55 Pulse:68 Resp:18 SaO2:93 OXYGEN Last weight lbs:221 oz:3 K.329 Method:Bed Scales Exam General appearance: alert, no acute distress, obese Eyes: anicteric ENT: mucous membranes moist Cardiovascular: regular rate & rhythm Respiratory: clear to auscultation, diminished breath sounds ABD: soft, no tenderness Extremities: no peripheral edema (none during entire course!) Skin: dry, intact Neuro: alert, oriented, speech clear Reviewed: medications, vital signs, lab results, radiology report Assessment/Plan Problem List 1. Acute exacerbation of chronic obstructive airways disease Status: Acute 2. Asthma Status: Chronic 3. Hypoxia Status: Acute 4. Respiratory failure with hypoxia and hypercapnia 5. NSTEMI (non-ST elevated myocardial infarction) 6. Tobacco use Patient condition Stable Plan: initiate discharge plan, home nebulizers will be arranged. Will follow-up in the office in the coming week. This inpt stay is expected to cross 2 MNs from start of care Yes at 1038
[2016-04-26] MEDS ORDERED: CEFDINIR300 MG PO (10:46)
[2016-04-26] MEDS ORDERED: ASPIRIN ADULT L81 M3 PO (10:47)
[2016-04-26 12:15] VITALS: BP 129/59
[2016-04-26 12:55] VITALS: BP 129/59
--- NOTE | 2016-04-29 13:50 | DISCHARGE SUMMARY STANDARD ---
Discharge Summary (FCA2) Date of admission: 04/21/16 Date of discharge: 04/26/16 Problem List: 1. Acute exacerbation of chronic obstructive airways disease 2. Asthma 3. Hypoxia 4. Respiratory failure with hypoxia and hypercapnia 5. NSTEMI (non-ST elevated myocardial infarction) 6. Tobacco use History of present illness: Ms Spear is a 66-year-old white female with severe chronic lung disease who was admitted through the emergency room. She stated that she had recent increasing shortness of breath with coughing, chest congestion and possibly a low grade fever. She also described some upper abdominal/ lower chest discomfort. With her workup in the ER she was found to have an elevated Troponin. Dr. Arroyo, gaming cage cashier, was consulted at this point. Despite her lung disease this patient was noted to have continued with her smoking. Exam on admission: Vital signs: 1ST Vital Signs Result Date Time Pulse Ox 86 04/21 1835 B/P 134/79 04/21 1835 O2 Flow Rate 4 04/21 1835 Pulse 88 04/21 1835 Resp 24 04/21 1835 Exam: General appearance: moderate distress, obese, agitated Eyes: anicteric, PERRLA ENT: mucous membranes moist Cardiovascular: regular rate & rhythm, distant heart sounds Respiratory: diminished breath sounds (BiPap) ABD: no organomegaly, obese Genitourinary: normal voiding & quantity Extremities: no peripheral edema Musculoskeletal: kyphosis present Skin: dry, intact, cyanosis Neuro: alert, no deficit, oriented, anxious due to dyspnea Hospital Course: After admission patient was started on IV antibiotics, Lovenox, IV Solu Medrol. She was placed on BIPAP for respiratory failure. Chest and stomach pain resolved. Cardiology was consulted for her elevated troponin levels and planned a cardiac cath when her respiratory status stabilized. She was gradually able to tolerate a Renetta mask during the day. She was still SOB and wheezing. On 04/24/16 she was able to have the cardiac cath which revealed : 1. The left main artery normal 2. The left anterior descending artery mild luminal irregularities 3. The circumflex artery mild luminal irregularities 4. The right coronary artery dominant has a mid vessel 30-40% non flow limiting stenosis 5. The BRENNAN ventriculogram revealed normal 65% 6. The left ventricular end-diastolic pressure mildly elevated 20 mmHg Elevated troponins were felt to be due to demand ischemia from COPD exacerbation. By 04/25/16 Patient was wearing Bipap during the night and O2 at 3LPM during the day. She was moving air well and without wheezing. On 04/26/16 she was feeling better and anxious to go home. She was discharged and was to continue with her O2, neb TX, and Bipap at night. Laboratory data this visit: 04/24/16 0747: POC Glucose 104 04/24/16 0550: Sodium 140, Potassium 4.9, Chloride 101, Carbon Dioxide 42 *H, BUN 36 H, Creatinine 0.6, Estimated Creat Clear 150, Estimated GFR (MDRD) 101, Glucose 120 H, Calcium 8.9, WBC 4.8, RBC 5.80 H, Hgb 13.8, Hct 46.7, MCV 81.2 L, RDW 15.2 , Plt Count 145, MPV 6.0 L, Gran % 77.1, Gran # 3.9, Lymphocytes % 15.8, Monocytes % 6.4, Eosinophils % 0.1, Basophils % 0.6, Lymphocytes # 0.8, Monocytes # 0.3, Eosinophils # 0.0, Basophils # 0.0, PUBS MCHC 29.4 L, MCH 23.9 L 04/23/16 2006: POC Glucose 133 H 04/23/16 1150: POC Glucose 116 H 04/23/16 0912: ABG pH 7.30 L, ABG pCO2 (Temp Corrct 79.6 H, ABG pO2 (Temp Correct 65.0 L, ABG HCO3 37.9 H, ABG Total CO2 40.4 H, ABG O2 Sat (Calculated) 91.1, ABG Base Excess 11.5 H, Alexis Test ACCEPTABLE, Blood Gas Comments R RADIAL 04/23/16 0908: Sodium 138, Potassium 4.5, Chloride 100, Carbon Dioxide 37 H, BUN 35 H, Creatinine 0.6, Estimated Creat Clear 151, Estimated GFR (MDRD) 101, Glucose 134 H, Calcium 8.5 04/22/16 0955: Triglycerides 227 H, Cholesterol 190, LDL Cholesterol 103.6, VLDL Cholesterol 45.4 H, HDL Cholesterol 41.0 04/22/16 0955: Sodium 138, Potassium 4.0, Chloride 99, Carbon Dioxide 33 H, BUN 32 H, Creatinine 0.7, Estimated Creat Clear 131, Estimated GFR (MDRD) 84, Glucose 118 H, Calcium 8.7 04/22/16 0555: ABG pH 7.34 L, ABG pCO2 (Temp Corrct 56.9 H, ABG pO2 (Temp Correct 53.9 L, ABG HCO3 30.1 H, ABG Total CO2 31.8 H, ABG O2 Sat (Calculated) 85.8 *L, ABG Base Excess 4.3 H, Alexis Test ACCEPTABLE, Blood Gas Comments RIGHT RADIAL 04/22/16 0310: Creatine Kinase 79, CK-MB (CK-2) Rel Index 4.7 H, CK and CKMB Interp 3.7 H, Troponin I 0.34 H 04/21/16 2305: ABG pH 7.28 L, ABG pCO2 (Temp Corrct 57.0 H, ABG pO2 (Temp Correct 80.0, ABG HCO3 26.0, ABG Total CO2 28.0 H, ABG O2 Sat (Calculated) 94, ABG Base Excess - 0.5, Alexis Test ACCEPTABLE, Blood Gas Comments RIGHT RADIAL 04/21/162103: POC Glucose 137 H 04/21/162100: C 04/21/161923: ABG pH 7.25 L, ABG pCO2 (Temp Corrct 65.7 H, ABG pO2 (Temp Correct 76.0 L, ABG HCO3 28.0 H, ABG Total CO2 30.0 H, ABG O2 Sat (Calculated) 92, ABG Base Excess 1.1, Alexis Test ACCEPTABLE, Blood Gas Comments LEFT RADIAL 04/21/16 1850: B-Natriuretic Peptide 250 H 04/21/16 1850: Sodium 137, Potassium 3.9, Chloride 98, Carbon Dioxide 31, BUN 26 H, Creatinine 0.7, Estimated Creat Clear 140, Estimated GFR (MDRD) 84, Glucose 144 H, Calcium 8.8, Total Bilirubin 0.3, AST 19, ALT 23, Alkaline Phosphatase 110, Creatine Kinase 99, CK-MB (CK-2) Rel Index 3.3, CK and CKMB Interp 3.3, Troponin I 0.40 H, Total Protein 8.2, Albumin 3.1 L, Globulin 5.1 H, Albumin/Globulin Ratio 0.6 L, WBC 8.8, RBC 6.15 H, Hgb 15.5, Hct 47.9 H, MCV 77.9 L, RDW 15.7, Plt Count 135 L, MPV 7.3 L, Gran % 85.0 H, Gran # 7.5, Total Counted 100, Lymphocytes % 9.6 L, Monocytes % 4.7, Eosinophils % 0.4, Basophils % 0.4, Neutrophils 90 H, Lymphocytes (Manual) 6 L, Lymphocytes # 0.9, Monocytes ( Manual) 4, Monocytes # 0.4, Eosinophils # 0.0, Basophils # 0.0, Platelet Estimate NORMAL, Hypochromasia 1+, Anisocytosis 1+, PUBS MCHC 32.5, MCH 25.3 L Imaging: CXR 04/21/16 MPRESSION: Chronic changes with atelectasis or infiltrate in the right mid to lower lung zone. Recommend upright PA and lateral chest for further evaluation ECHO 04/22/16 CONCLUSION: 1. Technically very difficult study because of the patient's factor and poor acoustic windows, repeat study with definitely contrast is recommended. 2. Probably preserved left ventricular systolic function, endocardial surface of very poorly visualized. 3. Mildly enlarged right ventricle with mild reduced contractility. 4. Mild mitral and tricuspid regurgitation. 5. No significant pericardial effusion noted. DATE OF CATHETERIZATION:04/24/2016 11:24 AM IMPRESSION: 1. Mild to moderate nonflow limiting disease in the proximal to mid dominant right coronary 2. Normal ejection fraction 3. Mildly elevated LVEDP consistent with diastolic dysfunction PLAN: 1. Medical management 2. Diuretics 3. Patient needs to have daily weights and adjust Lasix according to wait fluctuations fca EKG 04/21/16 NSR; Isolated Q in lead 111 Discharge medications: Continue taking these medications: Lansoprazole (Prevacid) 30 MG CAPSULE. 30 MILLIGRAM ORAL TWICE A DAY Polyethylene Glycol 3350 (Miralax) 17 GM POWD.PACK 17 GRAM ORAL DAILY Gemfibrozil (Lopid 600MG Tablet (Generic)) 600 MG TABLET 600 MILLIGRAM ORAL TWICE A DAY Furosemide (Lasix) 80 MG TABLET 80 MILLIGRAM ORAL DAILY Metformin HCl (Metformin ER) 500 MG TABLET 500 MILLIGRAM ORAL TWICE A DAY CAPTOPRIL (Captopril) 25 MG TABLET 25 MILLIGRAM ORAL TWICE A DAY Spironolactone (Aldactone) 25 MG TABLET 25 MILLIGRAM ORAL TWICE A DAY CITALOPRAM HYDROBROMIDE (Citalopram HBr) 20 MG TABLET 20 MILLIGRAM ORAL DAILY Potassium Chloride (Klor-Con M20) 20 MEQ TAB.ER.PRT 20 Milliequivalent ORAL DAILY Salmeterol 50/Fluticasone 250 (Advair 250-50 Diskus) 1 EACH BLST.W.DEV 1 PUFF IN VITRO TWICE A DAY Albuterol Sulfate (Proair Hfa) 8.5 GM HFA.AER.AD 2 PUFFS INHALATION FOUR TIMES A DAY Sertraline Hcl (Sertraline 50MG) 50 MG TABLET 50 MILLIGRAM ORAL DAILY Qty = 90 Sulindac ([place] Generic 200MG Tab) 200 MG TABLET 200 MILLIGRAM ORAL TWICE A DAY Qty = 180 Risedronate Sodium (Risedronate Sodium) 35 MG TABLET 35 MILLIGRAM ORAL Q WEEK (168 HRS) Qty = 12 Tiotropium [place] (Spiriva) 18 MCG CAP.W.DEV 1 PUFF INHALATION DAILY Start taking the following new medications: Cefdinir (Cefdinir) 300 MG CAPSULE 300 MILLIGRAM ORAL TWICE A DAY Qty = 10 Refills = 1 Aspirin (Aspirin EC) 81 MG TABLET. 81 MILLIGRAM ORAL AT BEDTIME NIGHTLY Qty = 100 Refills = 6 Disposition: Discharged to home in stable and fair condition. Meds as per reconciliation sheet. To continue with current diet and activity. Activity was to be limited. To follow-up with Dr. Lyon in 6 days at 8005
== END 2016-04-26 13:00 | disposition home or self-care (01) | DRG 280 ==
LOC: ER 18:34 → 2ND 19:59 → ICU 20:32 → 2ND 20:32 → ICU 04-23 13:31 → 2ND 04-25 16:19
PROVIDERS: Emergency Medicine; Family Medicine; Internal Medicine
PROC: 5A09457 Assistance with Respiratory Ventilation, 24-96 Consecutive Hours, Continuous Positive Airway Pressure (ICD-10-PCS; 2016-04-21)
PROC: B2151ZZ Fluoroscopy of Left Heart using Low Osmolar Contrast (ICD-10-PCS; principal; 2016-04-24 13:30)
PROC: B2111ZZ Fluoroscopy of Multiple Coronary Arteries using Low Osmolar Contrast (ICD-10-PCS; principal; 2016-04-24 13:30)
PROC: 4A023N7 Measurement of Cardiac Sampling and Pressure, Left Heart, Percutaneous Approach (ICD-10-PCS; principal; 2016-04-24 13:30)
DX: I21.4 Non-ST elevation (NSTEMI) myocardial infarction (principal); J96.01 Acute respiratory failure with hypoxia; J44.1 Chronic obstructive pulmonary disease with (acute) exacerbation; E11.9 Type 2 diabetes mellitus without complications; Z99.81 Dependence on supplemental oxygen; Z72.0 Tobacco use; J45.909 Unspecified asthma, uncomplicated
CPT/HCPCS: C1725; C1769; J1644; Q9967

== ENCOUNTER → 2016-09-22 | Outpatient (CLI) | payer MEDICARE ==
[~2016-09-22] MED LIST changes: +ASPIRIN ADULT L81 M3 PO; +CEFDINIR300 MG PO; +CLINORIL GENER200 MG PO; +RISEDRONATE SOD35 MG PO; +SERTRALINE 50MG50 MG PO; +SPIRIVA HA1 PUFF/INH IH
--- NOTE | 2016-09-22 13:17 | RADIOLOGY REPORT PS360 ---
EXAM: LUMBAR SPINE 5 VIEWS HISTORY: LUMBAGO WITH LT SCIATICA ORDERING PHYSICIAN: Shayne Lyon MD PATIENT AGE: 66 years COMPARISON: None FINDINGS: No acute fracture or dislocation. Degenerative disc disease is present at L3-L4, L4-L5, and L5-S1. There is 5 mm anterolisthesis of L4 on L5. Facet arthritic changes are also present from L3 to S1. The degenerative disc disease is worse at L4-L5. IMPRESSION: Lumbar spondylosis with degenerative disc disease and facet arthritic change from L3 to S1 with 5 mm anterolisthesis of L4 on L5
--- NOTE | 2016-09-22 13:21 | RADIOLOGY REPORT PS360 ---
EXAM: THORACIC SPINE-3V SWIMMERS HISTORY: Mid back pain COMPARISON: None FINDINGS: There is normal alignment. There is mild multilevel degenerative disc disease. Which is worse at T10-T11 level. There is slight loss of height anteriorly of T7. Not present on previous lateral chest radiograph of 05/24/2016 consistent with mild wedge compression change. No lytic or blastic change apparent. IMPRESSION: 1. Mild wedge compression changes at T7 which is developed since 05/24/2016. No obvious retropulsion. MRI may further evaluate clinically warranted 2. Multilevel thoracic spondylosis
== END ==
LOC: RAD 10:58
DX: M54.42 Lumbago with sciatica, left side (principal)